=== PATIENT | male | born 1985 | race Hispanic/Latino ===

== ENCOUNTER 2024-09-05 14:20 | Emergency (ER) | payer SELFPAY ==
[2024-09-05 14:22] VITALS: BP 133/87
--- NOTE | 2024-09-05 15:46 | ED.GENMED ---
History of Present Illness
General
Chief Complaint: Skin Surface Trauma
Source: patient
Time Seen by Provider: 09/05/24 15:32
History of Present Illness
History of Present Illness:
38-year-old male with no significant past medical history presents to the emergency department for evaluation after sustaining a laceration on his left hand between the thumb and interdigital webbing space occurring this past Tuesday when his hand
got caught on a rope. Patient is right-hand dominant, unknown last tetanus and no other injuries were sustained.
Past History
Past History
ED Past Medical History: None
ED Past Surgical History: None
Social History
Tobacco: Non-smoker
Alcohol: None
Drug: None
Living: with family
Employment: Employed
Review of Systems
Review of Systems
All Other Systems: ROS reviewed and negative except as documented in HPI and ROS
Phy Exam
Physical Exam
Physical Exam:
GENERAL: Alert , in no apparent distress
EYE: conjunctiva clear
Head: Normocephalic atraumatic
NECK: Supple,
ENT: mmm.
LUNGS: no acute respiratory distress
NEUROLOGICAL: Alert and oriented
SKIN: Warm and dry, there is an approximate 2 cm superficial laceration along the medial surface of the thumb/interdigital webbing space tracking towards the thenar eminence. Granulation tissue surrounding with very slight erythema but no purulent
drainage
MUSCULOSKELETAL: well perfused. Full range of motion of the left thumb
PSYCH: Normal and appropriate interaction.
Scores
Heart Failure Risk
Heart Failure Risk Score: Not Applicable
Heart Score for Chest Pain Patients
STEMI patient?: Not applicable
Withdrawal Assessment of Alcohol
Withdrawal Assessment Completed?: Not applicable
Course
Orders/Labs/Results
Orders:
Orders
09/05/24 15:46
Tetanus/Diphth/Acelpertussis [Adacel] 0.5 ml IM .ONCE ONE
Vital Signs
Initial and Last Documented VS:
Initial Vital Signs
Temp Pulse Resp BP Pulse Ox
98.5 F 69 18 133/87 100
09/05/24 14:22 09/05/24 14:22 09/05/24 14:22 09/05/24 14:22 09/05/24 14:22
Last Documented Vital Signs
Temp Pulse Resp BP Pulse Ox
98.5 F 69 18 133/87 100
09/05/24 14:22 09/05/24 14:22 09/05/24 14:22 09/05/24 14:22 09/05/24 14:22
MDM/Problems Addressed
Differential Diagnosis Includes:
Simple laceration, cellulitis, abscess, tendon or nerve injury
MDM/Problems Addressed:
38-year-old male presenting the ER for evaluation of a laceration sustained this past Tuesday to the left thumb/hand. Question early infection although I suspect poor wound healing as patient sustained this laceration well over 72 hours ago.
Discussed with patient that it is contraindicated to perform laceration repair at this time and could increase his risk for infection. Area was irrigated and cleaned and dressed here in the emergency department. Patient provided with some supplies
for continued wound care. Short-term course of Keflex provided. Patient advised on return precautions but otherwise stable for discharge. Will update patient's tetanus prior to being discharged.
*Pulse Oximetry
Patient hypoxic: no
*Critical Care Note
Total Time (30-74mins, 75-104mins- exclusive of procedures): Not Applicable
ED Attending Note
-
Portions of this chart may have been created with voice recognition software.� Occasional wrong word or��sound alike� substitutions may have occurred due to the inherent limitations of voice recognition software.
Discharge Plan
Departure
Patient Disposition: Home (Routine Discharge)
Date of Disposition: 09/05/24
Time of Disposition: 15:46
Patient with high blood pressure during this ER visit?: No
Discharge Problem:
Laceration of hand, right
Instructions: Wound Care (DC)
Prescriptions:
New
cephalexin 500 mg tablet
500 mg PO BID 7 Days Qty: 14 0RF
Interventions
Interventions:
*Risk Screen - Suicide Last Done: 09/05/24 14:22
*General Assessment Last Done: 09/05/24 14:22
*Neglect/Abuse Screening Last Done: 09/05/24 14:22
*ED- Fall Risk Assessment Last Done: 09/05/24 14:22
*ED COVID-19 Vaccine History Last Done: 09/05/24 14:22
*Nursing Disposition Last Done: 09/05/24 15:57
ED-Skin Assessment Last Done: 09/05/24 15:20
Discharge Date and Time
Discharge Date/Time: 09/05/24 15:58
Print Language: THAI
[2024-09-05] MEDS: ADACEL 0.5 ML IM (15:52)
== END 2024-09-05 15:58 | disposition home or self-care (01) ==
LOC: EMR 14:20
PROVIDERS: EMERGENCY PHYSICIAN Emergency Medicine
DX: S61.411A Laceration without foreign body of right hand, initial encounter (principal); W45.8XXA Other foreign body or object entering through skin, initial encounter; Z23 Encounter for immunization
CPT/HCPCS: 99282; 90471; 90715; 99283